=== PATIENT | female | born 1960 | race African-American/Black ===

== ENCOUNTER 2016-07-29 03:06 | Emergency (ER) | payer BC ==
--- NOTE | ~2016-07-29 | EKG ---
PATIENT: MARILU LE UNIT #: [id number] Ventricular Rate: 76 BPM Atrial Rate: 76 BPM P-R Interval: 168 ms QRS Duration: 104 ms Q-T Interval: 440 ms QTC Calculation(Bezet): 495 ms P Baraga: 80 degrees Calculated R Baraga: 89 degrees Calculated T Baraga: 54 degrees Diagnosis Line: Normal sinus rhythm Diagnosis Line: Incomplete right bundle branch block Diagnosis Line: Prolonged QT Diagnosis Line: Abnormal ECG Diagnosis Line: No previous ECGs available Diagnosis Line: Confirmed by JOSH NORMAN MD ([id number]) on 07/30/2016 Diagnosis Line: 11:15:13 AM INTERPRETING MD: EMERSON CHUN
[~2016-07-29 03:06] MED LIST: CERTAGEN PO; LANTUS100 U/ML SUBQ; NOVOLOG100 U/ML SUBQ; TRIAMTERENE-HCT1 TA7 PO
[2016-07-29 03:42] LABS: BASOPHIL% 0.2 % (0-2.5); HEMATOCRIT 40.7 % (35.0-45.0); HEMOGLOBIN 13.1 gm/dL (12.0-16.0); LYMPHOCYTE% 8.6 % (17.0-45.0); MEAN CELL VOLUME 83.6 FL (83-96); MEAN CORPUSCULAR HGB CONC 32.3 g/dL (30-36); MEAN PLATELET VOLUME 7.7 FL (6.5-11.5); MONOCYTE# 0.2 X10e3 (0-1.0); MONOCYTE% 1.6 % (3.0-12.0); NEUTROPHIL# 10.8 X10e3 (1.5-7.1); NEUTROPHIL% 89.6 % (40-75); PLATELET COUNT 252 X10e3 (140-420); RED BLOOD COUNT 4.86 X10e (3.90-5.30); RED CELL DISTRIBUTION WIDTH 16.5 % (11.0-15.5); WHITE BLOOD COUNT 12.1 X10e3 (4.0-10.5)
[2016-07-29 03:43] LABS: DIFF IND NO
[2016-07-29 04:08] LABS: ALBUMIN SERUM 4.9 g/dL (3.5-5.0); ALKALINE PHOSPHATASE 56 U/L (32-92); ALT (SGPT) 24 U/L (10-40); AMYLASE 40 U/L (0-46); AST (SGOT) 24 U/L (10-42); BILIRUBIN, DIRECT 0.1 mg/dL (0.0-0.2); BILIRUBIN,INDIRECT 0.6 mg/dL (0.0-0.9); BILIRUBIN,TOTAL 0.7 mg/dL (0.2-2.0); BLOOD UREA NITROGEN 20 mg/dL (9-23); CALCIUM SERUM 9.9 mg/dL (8.4-10.2); CARBON DIOXIDE 24 mmol/L (22-31); CHLORIDE 101 mmol/L (100-111); CREATININE SERUM 0.8 mg/dL (0.6-1.4); GLOM FILT RATE Estimated ABOVE60 mL/min (>60); GLUCOSE FASTING 166 mg/dL (70-110); LIPASE 23 U/L (22-51); POTASSIUM 3.2 mmol/L (3.5-5.1); PROTEIN TOTAL SERUM 8.1 g/dL (6.0-8.3); SODIUM 137 mmol/L (135-145)
== END 2016-07-29 06:50 | disposition home or self-care (01) ==
LOC: CED 03:06
PROVIDERS: Emergency Medicine
DX: A08.4 Viral intestinal infection, unspecified (principal); E11.9 Type 2 diabetes mellitus without complications; I10 Essential (primary) hypertension; F17.200 Nicotine dependence, unspecified, uncomplicated
CPT/HCPCS: 36415; 80048; 80076; 82150; 82947; 83690; 85025; 93005; 96361; 96374; 96375; 96376; 99284; J2405; J2765

== ENCOUNTER 2017-01-02 05:23 | Inpatient (IN) | payer BC ==
[~2017-01-02] VITALS: Ht 165.1 cm; Wt 57.0 kg
--- NOTE | ~2017-01-02 | DS ---
Unit #: [id number] #: [id number] Patient: BELLA LE [id number] [address] [address] [id number] I MR#: [id number] NAME: BELLA LE ROOM: 47 Age: 56 Sex: F Admission Date: 01/02/2017 : 1960 Discharge Date: 01/06/2017 Attending Physician: Mayelin Noel M.D. Primary Care Physician: No Primary Care Physician DISCHARGE SUMMARY ADMISSION DIAGNOSES 1. Intractable nausea and vomiting. 2. Abdominal pain. 3. Diarrhea. 4. Hypokalemia with potassium 3.4. 5. Diabetes. 6. Hypertension. 7. Hyperlipidemia. 8. Tobacco abuse. DISCHARGE DIAGNOSES 1. Intractable nausea and vomiting, resolved. 2. Abdominal pain, resolved. 3. Dehydration. 4. Hypertension. 5. Hyperlipidemia. 6. Type 2 diabetes mellitus. 7. Diarrhea, resolved. 8. Tobacco abuse. CONSULTANTS Jon Lewis M.D., gastroenterology. PROCEDURES PERFORMED Upper GI endoscopy. Postoperative diagnosis, completely normal examination up to the third of duodenum. DIAGNOSTIC DATA IMAGING: Gastric emptying study negative examination at 2 and 4 hours per voice clip. Right upper quadrant ultrasound with impression of gallbladder sludge without any evidence of acute cholecystitis. Stone within right kidney. Does not appear to be frankly hydronephrotic. LABORATORY: White blood cell count 10.6, hemoglobin 14.0, hematocrit 42.4, platelets 251,000. Sodium 134, repeat potassium today 3.3, chloride 99, CO2 24, glucose 132, BUN 12, creatinine 0.6, calcium 8.9, AST 20, ALT 25, alkaline phosphatase 62, bilirubin total 0.8, total protein 7.5, albumin 4.1, magnesium 2.0. Hemoglobin A1c 6.4. DIET Constant carbohydrate in combination with DASH diet. Unit #: [id number] #: [id number] Patient: BELLA LE DISCHARGE CONDITION Stable. DISPOSITION Home. ALLERGIES No known drug allergies. DISCHARGE MEDICATIONS 1. Janumet 50/500 mg tablets 1 p.o. b.i.d. 2. Aspirin 81 mg p.o. daily. Take with food. 3. Norvasc 10 mg tablet 1 p.o. daily. First dose to be given prior to discharge today. DISCHARGE INSTRUCTIONS 1. The patient is to discontinue Dyazide 37.5/25 mg tablet, which is a home medication for hypertension. This adjustment is being made today because of the patient's hypokalemia during this hospitalization. 2. The patient has been given a prescription for Norvasc 10 mg 1 tablet p.o. daily, #30 with 1 refill. 3. She is to call and schedule a follow-up appointment with her primary care physician at [facility] at [address] [place] [address] for followup on blood pressure, repeat BMP and magnesium level in 7-10 days. 4. She is to follow a constant carbohydrate DASH diet. A handout will be given prior to discharge today. HOSPITAL COURSE The patient is a 56-year-old female with a past medical history of diabetes, hypertension and hyperlipidemia, who presented to the [facility] emergency department on the date of admission with complaint of nausea, vomiting and diarrhea. The patient was treated with two liters of normal saline IV as well as Zofran, Phenergan, and Reglan. The patient's urinalysis was notable for 3+ ketones and potassium of 3.4. She was admitted to the hospital for further evaluation and management of her condition. Dr. Jon Lewis was consulted for further GI evaluation and management. The patient underwent upper GI endoscopy and gastric emptying study, both which were negative as dictated above. The patient has tolerated food and fluids today and has had no further nausea or vomiting. She is feeling well. She has been evaluated by Dr. Lewis as well as Dr. Noel and cleared for discharge home. She is to call and schedule followup appointment with Dr. Lewis in six to eight weeks at [phone]. The patient experienced hypokalemia and mild hypomagnesemia during the hospital course. She has been treated with potassium and magnesium protocol. Recheck potassium this afternoon was 3.3. The patient will receive 1 dose of KCL 40 mEq p.o. prior to discharge. Magnesium level is stable. We will discontinue Dyazide, which is her home antihypertensive medication. The patient has been given a note to take to her primary care provider. She is to call and schedule an appointment to follow up there in 7-10 days for repeat BMP and magnesium and to follow up on hypertension. This has been discussed with her in detail by Dr. Noel and she has verbalized understanding of this information. Unit #: [id number] #: [id number] Patient: BELLA LE The patient's blood pressure has consistently been in the 150s to 180s over 70s to 80s range diastolically since admission. She tells me her blood pressure is normally controlled on the Dyazide at home, but that she has been unable to take her medication because of nausea and vomiting. Given the patient's profound hypokalemia during hospital course, Dyazide has been discontinued. She was given a prescription for Norvasc 10 mg p.o. daily. Again, she is to receive one dose prior to discharge today. She is asymptomatic. She is to follow up with her primary care physician for recheck of blood pressure and labs as dictated under discharge instructions above. Dictated by... Kristin Terrell A.P.R.N. for Diaz Garirson/jeremiah TD: 01/08/2017 08:32 JOB #: [id number] DISCHARGE SUMMARY Page 1 of 1 X Kristin Terrell APRN X DISCHARGE SUMMARY
--- NOTE | ~2017-01-02 | NM19 ---
[facility] A [facility] RADIOLOGY TEXT RESULTS PATIENT: BELLA LE LOCATION: [place] [address] : 58 UNIT #: [id number] AGE: [address]: Mayelin Noel MD SEX: F ORDER DR: [id number] [facility] [address]. [place], [place] [address] [id number] I MR#: [id number] Acc #: [id number] NAME: BELLA LE : 1960 SEX: F STUDY DATE/TIME: 01/05/2017 8:32 UNIT: [facility] ROOM: [facility] STUDY DESCRIPTION: NM Gastric Emptying Study Attending Physician: Mayelin Noel M.D. Ordering Physician: Jon Lewis M.D. MEDICAL IMAGING REPORT This report is preliminary unless electronic signature is present EXAM Gastric emptying scan 01/14 HISTORY Nausea. Vomiting. Diarrhea. Mid-abdominal pain intermittently for 4 days. TECHNIQUE The patient ingested 482 microcuries of Tc-99m tagged sulfur colloid in eggs. Images of the upper abdomen were obtained for 4 hours. FINDINGS After 1 hour, the stomach was 70% empty and after 2 hours, the stomach was 77% empty. After 4 hours, the stomach was 94% empty. Normal range is greater than 60% empty after 2 hours of imaging and greater than 90% empty after 4 hours of imaging. IMPRESSION Normal gastric emptying after 2 and 4 hours of imaging. Dictated by... Marc Jung M.D. THIS IS AN ELECTRONICALLY VERIFIED REPORT Marc Jung M.D. at 01/06/2017 2:37 PM KRT/pcl TD: 01/05/2017 18:28 JOB #: [id number] MEDICAL IMAGING REPORT [facility] A [facility] RADIOLOGY TEXT RESULTS PATIENT: BELLA LE LOCATION: [place] [address] : 58 UNIT #: [id number] AGE: [address]: Mayelin Noel MD SEX: F ORDER DR: Page 1 of 1 COPY
--- NOTE | ~2017-01-02 | CO ---
Unit #: [id number] #: [id number] Patient: BELLA LE [id number] [address] [address] [id number] I MR#: [id number] NAME: BELLA LE ROOM: 47 Age: 56 Sex: F Admission Date: 01/02/2017 : 1960 Attending Physician: Mayelin Noel M.D. Primary Care Physician: No Primary Care Physician Consultation Date: 01/04/2017 CONSULTATION REPORT ATTENDING PHYSICIAN Dr. Roya Gomez and Dr. Mayelin Noel REASON FOR CONSULTATION Nausea, vomiting, epigastric pain. HISTORY Ms. Le is a very pleasant 56-year-old -[place]is[place] female. The patient lives by herself and works in a [employer]. She has had several episodes of intermittent nausea and vomiting with complete periods of normalcy in between each of these episodes lasting for four to five days and ends up coming to the emergency room and being admitted and requiring intravenous hydration and IV fluids. The patient has repeated vomiting. During these periods, she tends to lose weight and then subsequently tends to gain it back. Her diabetes is well controlled with a glycol hemoglobin of 6.5. The patient denies any history of fever, chills or rigors and there is no history of classic retrosternal (1) heartburn and postprandial dyspepsia although she does mention a history of cramping in the mid upper abdomen. Upon admission, she was given intravenous fluids with 2 L of normal saline along with Zofran and Phenergan. She had 3+ ketones on urinalysis. PAST MEDICAL HISTORY Significant for: 1. History of hypertension. 2. Diabetes. 3. Hyperlipidemia. 4. Previous admission for diabetic ketoacidosis about five years ago. PREVIOUS SURGERIES Included removal of a cyst on the wrist. MEDICATIONS Her home medications: 1. Metformin. 2. Medications for cholesterol. 3. Antihypertensive medication. She is not taking any insulin. SOCIAL HISTORY She does smoke a half pack of cigarettes per day and drinks occasionally. 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 Unit #: [id number] #: [id number] Patient: BELLA LE ALLERGIES There is no history of known drug allergies. REVIEW OF SYSTEMS A detailed review of organ systems reveals some weight loss but patient not able to quantify it. There is no history of fever, chills or rigors. No history of headaches, seizures, chest pain or syncope. No history of cough, expectoration or hemoptysis. No history of dysuria, hematuria or pyuria. No history of focal seizure or extremity weakness. The rest of the organ system is unremarkable. PHYSICAL EXAMINATION GENERAL APPEARANCE: She is awake, alert oriented and appears comfortable. VITAL SIGNS: Her vital signs are stable with a temperature of 98.1, pulse 69 per minute and regular, respiratory rate 18, blood pressure is 155/76. She has no pallor, icterus, lymphadenopathy or peripheral edema. CARDIOVASCULAR EXAMINATION: Normal heart sounds. No murmurs. LUNGS: Auscultation over the lungs reveals normal breath sounds with good air entry. ABDOMEN: Soft and nontender. Liver and spleen are not palpable. Bowel sounds normal. DIAGNOSTIC STUDIES LABORATORY: Lab evaluation shows a white count of 13,000, hemoglobin of 12.6, a platelet count of 261. Serum chemistry shows a normal BUN and creatinine and electrolytes and blood glucose of 126. Her serum osmolality on admission was 310 and glycol hemoglobin on January 02, a couple days ago, was 6.4. CLINICAL IMPRESSION The intermittent nature of the nausea and vomiting suggests that it might be (2) vomiting. Other possibilities include that of diabetic gastroparesis although patient does not have any history of peripheral neuropathy. Lastly, it may be related to GI tract such as peptic ulcer disease although intermittency of symptoms is not the hallmark of the latter. A diagnostic endoscopy is warranted and will be scheduled later today. Pros and cons of the procedure and potential risks and complications were discussed with the patient and she was reassured. Thank you very much for asking me to see this pleasant woman. I appreciate the consult. Dictated by... Diaz Hernández TD: 01/05/2017 08:41 JOB #: [id number] CC: Roya Gomez M.D. Unit #: [id number] #: [id number] Patient: BELLA LE CONSULTATION REPORT Page 1 of 1 X Jon Lewis MD CONSULTATION REPORT
--- NOTE | ~2017-01-02 | HP ---
Unit #: [id number] #: [id number] Patient: BELLA LE [id number] [address] [place], [place] [address] [id number] I MR#: [id number] NAME: BELLA LE ROOM: 47 Age: 56 Sex: F Admission Date: 01/02/2017 : 1960 Attending Physician: Roya Gomez M.D. Primary Care Physician: Primary Care Physician No HISTORY AND PHYSICAL CHIEF COMPLAINT Vomiting, diarrhea, nausea HISTORY OF PRESENT ILLNESS The patient is a 56-year-old female with past medical history of diabetes, hypertension, hyperlipidemia, who presented to the emergency department for evaluation of the above. The patient states that she was in her usual state of health until the evening prior to admission when she developed abdominal pain, vomiting and diarrhea. The abdominal pain is in the mid abdomen, she describes it as "cramping" it is intermittent in nature. It is exacerbated by eating. There are no alleviating factors. She denies any similar pain. She has had more than 10 bouts of nonbloody emesis and 2-3 bouts of nonbloody diarrhea within the past 24 hours. She denies any fever or chills. No urinary symptoms. In the emergency department an initial pulse and blood pressure were 67 and 161/86 respectively. She was given a total of 2 liters of normal saline as well as 4 mg of Zofran, 12.5 mg of phenergan, 10 mg of Reglan. She is being admitted to [facility] for evaluation and further treatment. Urinalysis notable for 3+ ketones. Potassium is 3.4. PAST MEDICAL HISTORY 1. Admission to [facility] May 30, 2011 through June 02, 2011, for diabetic ketoacidosis. 2. Hypertension. 3. Hyperlipidemia. 4. Diabetes. PAST SURGICAL HISTORY Cyst removed from wrist. SOCIAL HISTORY The patient lives alone. She smokes a pack of cigarettes daily. She denies alcohol or illicit drug use. 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 FAMILY HISTORY Notable for diabetes. ALLERGIES No known allergies. Unit #: [id number] #: [id number] Patient: BELLA LE HOME MEDICATIONS The patient states that she is on metformin as well as a medicine for cholesterol. Home medications will need to be reviewed and verified. REVIEW OF SYSTEMS A complete review of systems is negative except as indicated in the HPI. The patient said her blood sugars are typically in the 100s. DIAGNOSTIC STUDIES LABORATORY: Complete blood count is essentially normal. Comprehensive metabolic panel is notable for a CO2 of 20, anion gap is 12, glucose 182, total protein 8.5, amylase and lipase are normal. Beta hydroxybutyrate is 1.46. Urinalysis notable for greater than 1000 glucose, 3+ ketones. Magnesium is 1.7. Repeat basic metabolic panel shows potassium of 3.4, CO2 of 20, anion gap of 12, glucose 143. PHYSICAL EXAMINATION VITAL SIGNS: Temperature 97.4, pulse 67, respirations 14, blood pressure 161/86. Oxygen saturation 100% on room air. GENERAL: The patient is a very pleasant female who is awake and alert in no acute distress. HEENT: The head is atraumatic. Mucous membranes are dry. NECK: Supple. Trachea is midline. CARDIOVASCULAR: Regular rate and rhythm. LUNGS: Clear to auscultation bilaterally with no increased work of breathing. ABDOMEN: Soft, nontender, with bowel sounds present in all four quadrants. EXTREMITIES: Nontender with no pedal edema. NEUROLOGIC: The patient is awake and alert. She follows commands. PSYCHIATRIC: Mood and affect are normal. The patient is cooperative. SKIN: Of examined areas is warm and dry. ASSESSMENT The patient is a 56-year-old female with: 1. Intractable nausea and vomiting 2. Abdominal pain 3. Diarrhea 4. Hypokalemia with a potassium of 3.4 5. Diabetes 6. Hypertension 7. Hyperlipidemia 8. Tobacco abuse PLAN 1. Admit for observation to intermediate level 2. Normal saline at 125 mL/hour 3. Advance to clear liquids as tolerated 4. Zofran p.r.n. 5. Phenergan p.r.n. 6. Potassium/magnesium protocol 7. Hemoglobin A1c 8. Low-dose sliding scale insulin with AccuChek 9. Hydralazine p.r.n. 10. Repeat labs in the morning including magnesium 11. Sequential compression devices for deep venous thrombosis Unit #: [id number] #: [id number] Patient: MIMIFITZBELLA LESLI prophylaxis 12. Additional workup and consultants based on above Dictated by Roya Gomez M.D. AW/to TD: 01/02/2017 14:39 JOB #: [id number] HISTORY AND PHYSICAL Page 1 of 1 X Roya Gomez MD X HISTORY AND PHYSICAL
--- NOTE | ~2017-01-02 | US6 ---
[facility] A Service [facility] RADIOLOGY TEXT RESULTS PATIENT: BELLA LE LOCATION: [facility] [id number] : 58 UNIT #: [id number] AGE: [address]: Mayelin Noel MD SEX: F ORDER DR: [id number] [facility] [address] [facility]. [place], [place] [address] [id number] I MR#: [id number] Acc #: [id number] NAME: BELLA LE : 1960 SEX: F STUDY DATE/TIME: 01/04/2017 13:23 UNIT: [facility] ROOM: [facility] STUDY DESCRIPTION: US Abdominal Limited Attending Physician: Mayelin Noel M.D. Ordering Physician: Mayelin Noel M.D. Primary Care Physician: Primary Care Physician No MEDICAL IMAGING REPORT This report is preliminary unless electronic signature is present EXAM Right upper quadrant ultrasound INDICATION Abdominal pain for a few days. TECHNIQUE Dale-scale and color Doppler sonographic images were obtained through the right upper quadrant. FINDINGS The patient does have a right renal stone. I think the adjacent katina appears dilated and potentially the stone may be obstructing the katina. On some of the images there is a question of also some dilatation of the right renal collecting system. Further evaluation with dedicated CT is recommended for additional assessment. The remainder of the kidney does not appear frankly hydronephrotic. I think overall the liver is heterogeneous in echotexture, and there is some increased echogenicity of the portal triads which is a nonspecific finding that can be seen in the setting of hepatitis. The liver itself does not appear particularly enlarged. There is no intra or extrahepatic biliary dilatation and no definite masses are seen. The patient does appear to have some sludge within the gallbladder but I do not see any gallbladder wall thickening or pericholecystic fluid to suggest acute cholecystitis. IMPRESSION 1. Patient does appear to have a stone within the right kidney. do think the adjacent katina is dilated which may reflect some obstruction of that katina by the stone. On some of the images there is some apparent pelviectasis although the kidney does not appear STS. [facility] A Service of [facility] & [facility] RADIOLOGY TEXT RESULTS PATIENT: BELLA LE LOCATION: [place] [address] : 58 UNIT #: [id number] AGE: [address]: Mayelin Noel MD SEX: F ORDER DR: frankly hydronephrotic. CT would certainly allow for much more sensitive evaluation for stone burden. 2. Overall I think there is some coarsening of hepatic echotexture and increased echogenicity of portal triads. This finding is nonspecific but can be seen in the setting of hepatitis. Correlation with clinical presentation as well as laboratory function test is suggested. 3. Gallbladder sludge without any evidence of acute cholecystitis. Dictated by... Saima Mcmanus M.D. THIS IS AN ELECTRONICALLY VERIFIED REPORT Saima Mcmanus M.D. at 01/06/2017 4:20 PM AFF/marissa TD: 01/04/2017 21:02 JOB #: [id number] MEDICAL IMAGING REPORT Page 1 of 1 COPY
--- NOTE | ~2017-01-02 | OR ---
Unit #: [id number] #: [id number] Patient: BELLA LE [id number] [address] [address] [id number] I MR#: [id number] NAME: BELLA LE ROOM: 477 Date of Procedure: 01/04/2017 Admission Date: 01/02/2017 Surgeon: Jon Lewis M.D. : 1960 Attending Physician: Mayelin Noel M.D. OPERATIVE REPORT PREOPERATIVE DIAGNOSES Nausea, vomiting, and epigastric pain. PROCEDURES PERFORMED Upper gastrointestinal endoscopy. POSTOPERATIVE DIAGNOSIS Completely normal examination up to third part of duodenum. RECOMMENDATIONS 1. Suggest advance diet as tolerated. 2. Consider a gastric emptying study tomorrow. SEDATION USED MAC. DESCRIPTION OF PROCEDURE Following detailed explanation of the potential risks and complications of an upper endoscopy, namely perforation, bleeding, and complications related to sedation, the patient was brought to GI lab and laid in the left lateral decubitus position. Lubricated tip of the Olympus video upper endoscope was passed through bite block into the proximal esophagus under direct vision. The entire esophageal mucosa was examined and appeared normal. Z-line was nicely demarcated, there being no esophagitis or hiatus hernia. The scope was then advanced into the gastric cavity and the latter was insufflated. Mucosa of the fundus, body, and antrum examined and appeared unremarkable. Pylorus was intubated with visualization of the normal duodenal bulb and second and third part of the duodenum. Upon withdrawal and retroflexion, incisura, cardia, and greater curve examined and no additional findings noted. The scope was then withdrawn in the distal esophagus. The entire esophageal mucosa was examined all the way up to pharynx. No additional findings noted. The patient tolerated the procedure without any postprocedure complications. Dictated by... Diaz Hernández/nina TD: 01/04/2017 15:55 Unit #: [id number] #: [id number] Patient: BELLA LE JOB #: [id number] CC: Roya Gomez M.D. OPERATIVE REPORT Page 1 of 1 X Jon Lewis MD PROCEDURE OPERATIVE NOTE
[2017-01-02 06:16] LABS: BASOPHIL% 0.2 % (0-2.5); HEMATOCRIT 43.7 % (35.0-45.0); HEMOGLOBIN 14.3 gm/dL (12.0-16.0); LYMPHOCYTE# 1.2 X10e3 (1.0-3.5); LYMPHOCYTE% 11.2 % (17.0-45.0); MEAN CELL VOLUME 86.7 FL (83-96); MEAN CORPUSCULAR HEMOGLOBIN 28.4 PG (28-34); MEAN CORPUSCULAR HGB CONC 32.7 g/dL (30-36); MEAN PLATELET VOLUME 8.1 FL (6.5-11.5); MONOCYTE# 0.2 X10e3 (0-1.0); MONOCYTE% 2.3 % (3.0-12.0); NEUTROPHIL% 86.3 % (40-75); PLATELET COUNT 277 X10e3 (140-420); RED BLOOD COUNT 5.04 X10e (3.90-5.30); RED CELL DISTRIBUTION WIDTH 14.6 % (11.0-15.5); WHITE BLOOD COUNT 10.5 X10e3 (4.0-10.5)
[2017-01-02 06:30] LABS: DIFF IND NO
[2017-01-02 07:34] LABS: ALBUMIN SERUM 4.8 g/dL (3.5-5.0); BILIRUBIN, DIRECT 0.1 mg/dL (0.0-0.2); BILIRUBIN,INDIRECT 0.3 mg/dL (0.0-0.9); BILIRUBIN,TOTAL 0.4 mg/dL (0.2-2.0); CALCIUM SERUM 9.9 mg/dL (8.4-10.2); CREATININE SERUM 0.8 mg/dL (0.6-1.4); GLOM FILT RATE Estimated 94.9 mL/min (>60); POTASSIUM 3.9 mmol/L (3.5-5.1); PROTEIN TOTAL SERUM 8.5 g/dL (6.0-8.3)
[2017-01-02 08:17] LABS: URINE APPEARANCE CLEAR; URINE BILIRUBIN NEG (NEG); URINE BLOOD NEG (NEG); URINE COLOR YELLOW; URINE GLUCOSE >1000 MG/DL (NEG); URINE KETONE 3+ (NEG); URINE LEUKOCYTE ESTERASE NEG (NEG); URINE NITRATE NEG (NEG); URINE PH 5.5 (5-8); URINE PROTEIN NEG (NEG); URINE SPECIFIC GRAVITY 1.021 (1.003-1.035); URINE UROBILINOGEN 0.2 MG/DL (NEG)
[2017-01-02 08:28] LABS: CULTURE INDICATED? NO
[2017-01-02 10:37] LABS: BUN/CREATININE RATIO 17.14; CREATININE SERUM 0.7 mg/dL (0.6-1.4); GLOM FILT RATE Estimated 111.5 mL/min (>60); POTASSIUM 3.4 mmol/L (3.5-5.1)
[2017-01-02 10:58] LABS: BETA HYDROXYBUTYRATE 1.98 MMOL/L (0.02-0.27)
[2017-01-02] MEDS ORDERED: DYAZIDE 371 CAP 37.5 PO (15:18)
[2017-01-02] MEDS ORDERED: JANUMET 50-5001 EACH PO (15:19)
[2017-01-02] MEDS ORDERED: ASPIRIN81 MG PO (18:43)
[2017-01-03 02:38] LABS: HEMATOCRIT 38.6 % (35.0-45.0); HEMOGLOBIN 12.6 gm/dL (12.0-16.0); MEAN CELL VOLUME 85.8 FL (83-96); MEAN CORPUSCULAR HGB CONC 32.7 g/dL (30-36); MEAN PLATELET VOLUME 7.8 FL (6.5-11.5); RED BLOOD COUNT 4.5 X10e (3.90-5.30); RED CELL DISTRIBUTION WIDTH 14.9 % (11.0-15.5); WHITE BLOOD COUNT 13.2 X10e3 (4.0-10.5)
[2017-01-03 03:06] LABS: ALBUMIN SERUM 4.2 g/dL (3.5-5.0); BILIRUBIN,TOTAL 0.6 mg/dL (0.2-2.0); BUN/CREATININE RATIO 17.14; CALCIUM SERUM 9.1 mg/dL (8.4-10.2); CREATININE SERUM 0.7 mg/dL (0.6-1.4); GLOM FILT RATE Estimated 111.5 mL/min (>60); MAGNESIUM 2.1 mg/dL (1.6-3.0); POTASSIUM 3.4 mmol/L (3.5-5.1); PROTEIN TOTAL SERUM 7.6 g/dL (6.0-8.3)
[2017-01-04 09:01] LABS: BUN/CREATININE RATIO 18.33; CALCIUM SERUM 8.8 mg/dL (8.4-10.2); CREATININE SERUM 0.6 mg/dL (0.6-1.4); GLOM FILT RATE Estimated 117.3 mL/min (>60); POTASSIUM 3.7 mmol/L (3.5-5.1)
[2017-01-05 03:18] LABS: HEMATOCRIT 42.4 % (35.0-45.0); MEAN CELL VOLUME 85.8 FL (83-96); MEAN CORPUSCULAR HEMOGLOBIN 28.4 PG (28-34); MEAN CORPUSCULAR HGB CONC 33.1 g/dL (30-36); MEAN PLATELET VOLUME 8.1 FL (6.5-11.5); RED BLOOD COUNT 4.94 X10e (3.90-5.30); RED CELL DISTRIBUTION WIDTH 14.3 % (11.0-15.5); WHITE BLOOD COUNT 10.6 X10e3 (4.0-10.5)
[2017-01-05 03:48] LABS: ALBUMIN SERUM 4.1 g/dL (3.5-5.0); BILIRUBIN,TOTAL 0.8 mg/dL (0.2-2.0); CALCIUM SERUM 8.9 mg/dL (8.4-10.2); CREATININE SERUM 0.6 mg/dL (0.6-1.4); GLOM FILT RATE Estimated 117.3 mL/min (>60); PROTEIN TOTAL SERUM 7.5 g/dL (6.0-8.3)
[2017-01-05 04:12] LABS: POTASSIUM 2.8 mmol/L (3.5-5.1)
[2017-01-06 04:04] LABS: MAGNESIUM 2.1 mg/dL (1.6-3.0); POTASSIUM 3.9 mmol/L (3.5-5.1)
[2017-01-06] MEDS ORDERED: NORVASC10 MG PO (10:22)
== END 2017-01-06 11:13 | disposition home or self-care (01) | DRG 392 ==
LOC: CED 05:23 → C4C 10:30 → CEDOF 10:30 → CED 11:25 → CEDOF 11:25 → C4C 13:18 → CEDOF 13:18 → C4C 13:18
PROVIDERS: Emergency Medicine; Family Medicine; Internal Medicine Gastroenterology; Nurse Practitioner Family
PROC: 0DJ08ZZ Inspection of Upper Intestinal Tract, Via Natural or Artificial Opening Endoscopic (ICD-10-PCS; principal; 2017-01-04 15:21)
DX: R11.2 Nausea with vomiting, unspecified (principal); I10 Essential (primary) hypertension; R10.13 Epigastric pain; R19.7 Diarrhea, unspecified; E11.9 Type 2 diabetes mellitus without complications; E78.5 Hyperlipidemia, unspecified; F17.210 Nicotine dependence, cigarettes, uncomplicated; E87.6 Hypokalemia; E86.0 Dehydration; K21.9 Gastro-esophageal reflux disease without esophagitis; Z79.4 Long term (current) use of insulin; N20.0 Calculus of kidney
CPT/HCPCS: 36415; 76705; 78264; 80048; 80053; 80076; 81003; 82010; 82150; 82947; 83036; 83690; 83735; 84132; 85025; 85027; 96361; 96374; 96375; 99285; A9541; C9113; J0360; J1815; J2405; J2550; J2765; J3475